=== PATIENT | female | born 1995 | race Caucasian/White ===

== ENCOUNTER → 2021-01-10 10:03 | Outpatient (CLI) | payer OTHER, MEDICAID, SELFPAY ==
[2021-01-10 11:34] LABS: COVID19 -Nasal RAPID Negative (Negative)
== END ==
PROVIDERS: PCP Registered Nurse; Visit Provider Student in an Organized Health Care Education/Training Program
DX: Z20.822 Contact with and (suspected) exposure to COVID-19 (principal)
CPT/HCPCS: 87635

== ENCOUNTER 2021-01-11 08:18 | Day surgery (SDC) | payer OTHER, MEDICAID, SELFPAY ==
[2021-01-11] VITALS (8 sets, daily range): BP systolic 101–141; BP diastolic 41–87; PULSE 75–95; RESP 12–17; TEMP 36.4–36.8; O2SAT 96–100; BMI 59.4
[2021-01-11] MEDS: LACTATED RINGERS 1,000 ML 42 ML IV (09:14)
[2021-01-11] MEDS: ACETAMINOPHEN 325 MG TABLET 975 MG PO (09:45)
[2021-01-11] MEDS: SCOPOLAMINE 1 PATCH TOP (09:46)
--- NOTE | 2021-01-11 11:23 | PM.PREOP ---
Pre-operative Note COVID-19 COVID-19 status: Result pending Interval Note History & Physical reviewed/Exam performed by Physician: Yes Changes to H&P: No
--- NOTE | 2021-01-11 11:23 | PM.OP.1 ---
Operative Date/Time/Diagnoses Date of procedure: 01/11/21 Time of procedure: 12:47 Pre-op diagnosis: Chronic tonsillitis, tonsillar hypertrophy, throat pain, DAVID Post-op diagnosis: same Procedure & Clinicians Procedure: Tonsillectomy and adenoidectomy, extra difficulty requiring 30min over average surgery due to morbid obesity, difficult exposure with small mouth and relative macroglossia, as well as friable tonsils requiring piecemeal resection. Same procedure as scheduled: Yes Indications: 25-year-old female with the above diagnoses incompletely managed with medical therapy presents for the above procedures. Following discussion of the material risks benefits complications and alternatives, she elected to proceed. Surgeon: Paramjit Modi Click Yes if Unassisted: Yes Anesthesia Type: General and Local Operative Notes Findings: Intact palate, single uvula, 3+ tonsils, friable with stones, required piecemeal resection,2+ adenoids. Difficult exposure with small mouth, large tongue, required visualization of 1 tonsil at a time only. Closure Type: not applicable Specimen(s): none sent Estimated Blood Loss (mL): 30 Blood products transfused: none Procedure in detail: Following identification and confirmation of consent the patient was brought to the operating room suite and placed in the supine position. General endotracheal anesthesia was administered. A head wrap, shoulder roll, and mouth gag were placed and a red rubber catheter was inserted through the nostril and out the mouth to retract the soft palate. Partially obstructive adenoid tissue was ablated with suction electrocautery on a setting of 40, without injury to the eustachian tube orifices or choana. The left tonsil was retracted medially and suction electrocautery on a setting of 30 was used to dissect the tonsil in a subcapsular plane, difficult as noted above, followed by hemostasis with the same. This process was repeated on the right side with identical findings. Dissection was difficult due to the friable tonsils and poor exposure requiring 30 min over the typical surgery. The tonsillar fossae were superficially infiltrated bilaterally with a 1:1 mixture of 1% lidocaine 1 100,000 epinephrine and 0.25% Marcaine 1 to 420231 epinephrine. Mouth gag and rubber catheter were removed and the patient was extubated in the operating room and taken to the recovery room in stable condition without known complication. Complications: none Post-operative Condition: stable Disposition: same day surgery Plan for aftercare: Push fluids, soft food for 2 weeks, Tylenol alternating with Advil for pain control, oxycodone for breakthrough pain. No smoking if at all possible. No heavy lifting or straining for 2 weeks.
--- NOTE | 2021-01-11 12:04 | SUR.OPER ---
Supine on padded OR bed, head on gel doughnut, arms secured on padded arm boards at <90 degrees abduction, legs uncrossed, safety belt at thigh, tape over blanket over lower legs.
[2021-01-11] MEDS: BUPIVACAINE 0.25% W/ EPI (PF) 10 ML VIAL 20 ML INJ (12:10)
[2021-01-11] MEDS: LIDOCAINE 1% W/EPI 20 ML INJ (12:10)
[2021-01-11] MEDS: fentaNYL 100 MCG/2 ML INJ IV ×2 (13:06→13:15)
[2021-01-11] MEDS: OXYCODONE IR 5 MG TABLET PO (13:27)
== END 2021-01-11 13:50 | disposition home or self-care (01) ==
PROVIDERS: PCP Registered Nurse; Referring Provider Registered Nurse; Visit Provider Otolaryngology
PROC: (CPT 42821; principal; 2021-01-11 10:15)
DX: J35.01 Chronic tonsillitis (principal); G47.33 Obstructive sleep apnea (adult) (pediatric); E66.01 Morbid (severe) obesity due to excess calories; Q38.2 Macroglossia; F17.210 Nicotine dependence, cigarettes, uncomplicated; Z68.43 Body mass index [BMI] 50.0-59.9, adult
CPT/HCPCS: 42821; 81025; J0330; J1100; J2250; J2405; J2704; J3010